=== PATIENT | female | born 1980 | race Caucasian/White ===

== ENCOUNTER 2017-08-02 05:26 | Day surgery (SDC) | payer MEDICAID ==
[~2017-08-02] VITALS: Ht 167.6 cm; Wt 115.2 kg
[~2017-08-02 05:26] MED LIST: MOBIC7.5 MG PO; NEURONTIN 300300 MG PO; NICODERM C1 PATCH .3 TRANSDERM; VALIUM10 MG PO
[2017-08-02 09:48] VITALS: BP 111/71; Ht 167.6 cm; Wt 115.2 kg
[2017-08-02] MEDS ORDERED: HYDROCODONE-APA1 TAB PO (13:36)
== END 2017-08-02 14:45 | disposition home or self-care (01) ==
LOC: D.OPS 05:26 → D.PAN 15:30 → D.OPS 17:45
DX: S83.242A Other tear of medial meniscus, current injury, left knee, initial encounter (principal); F17.200 Nicotine dependence, unspecified, uncomplicated; K21.9 Gastro-esophageal reflux disease without esophagitis; Z01.812 Encounter for preprocedural laboratory examination; M94.262 Chondromalacia, left knee

== ENCOUNTER → 2018-06-07 16:17 | Outpatient (CLI) | payer MEDICAID ==
[2017-08-02 09:48] VITALS: BMI 41.1
[~2018-06-07 16:17] MED LIST changes: +HYDROCODONE-APA1 TAB PO
== END | disposition home or self-care (01) ==
LOC: D.MRI 16:17
DX: M72.2 Plantar fascial fibromatosis (principal)

== ENCOUNTER 2019-03-15 13:03 | Emergency (ER) | payer MEDICAID ==
[~2019-03-15] VITALS: Ht 167.6 cm; Wt 95.3 kg
[2019-03-15 13:06] VITALS: Ht 167.6 cm; Wt 95.3 kg
[2019-03-15] MEDS ORDERED: ESTRACE 0.0142.5 GM VG (13:08)
[2019-03-15] MEDS ORDERED: TOPAMAX50 MG PO (13:10)
[2019-03-15] MEDS ORDERED: TYLENOL #4 W/CO1 TAB PO (13:10)
[2019-03-15 15:30] VITALS: BP 102/63
== END 2019-03-15 15:31 | disposition home or self-care (01) ==
LOC: D.ER 13:03
DX: M54.16 Radiculopathy, lumbar region (principal)

== ENCOUNTER 2019-05-19 09:00 | Day surgery (SDC) | payer MEDICAID ==
[2019-05-16 11:26] LABS: HEMATOCRIT 38.4 % (36.0-48.0); HEMOGLOBIN 13.1 g/dL (12-16); MCH 31.2 pg (26.0-34.0); MCHC 34.1 g/dL (31.0-37.0); MCV 91.4 fL (80.0-100.0); MEAN PLATELET VOLUME 10.7 fL (7.4-10.4); RBC 4.2 10x6/uL (4.00-5.40); RDW 12.9 % (11.5-14.5); WBC 9.7 10x3/uL (4.8-10.8)
[~2019-05-19] VITALS: Ht 167.6 cm; Wt 113.4 kg
[~2019-05-19 09:00] MED LIST changes: +ESTRACE 0.0142.5 GM VG; +NAPROXEN250 MG PO; +TOPAMAX50 MG PO; +TYLENOL #4 W/CO1 TAB PO
[2019-05-19 11:08] VITALS: BP 104/39; Ht 167.6 cm; Wt 113.4 kg
[2019-05-19] MEDS ORDERED: HYDROCODON-ACE1 EA10 PO (14:33)
--- NOTE | 2019-05-19 17:43 | NUR ---
1650 IV REMOVED INSTRUCTIONS AND RX GIVEN. NO CRUTCHES IN ROOM BUT STATED SHE HAS SOME AT HOME. WBAT TO LT LEG.
--- NOTE | 2019-05-21 15:43 | OP ---
PATIENT NAME: ZEE HUNTLEY MEDICAL RECORD: [id number] :80 LOCATION:[facility] ADMISSION DATE: SURGEON: LENY MELTON MD DATE OF OPERATION: 05/19/2019 PREOPERATIVE DIAGNOSIS: Patellofemoral syndrome of the left knee. POSTOPERATIVE DIAGNOSIS: Patellofemoral syndrome of the left knee. PROCEDURE: Arthroscopic lateral release, left knee. SURGEON: Leny Melton MD ANESTHESIA: General. INTRAOPERATIVE COMPLICATIONS: None. 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 OPERATIVE SUMMARY IN DETAIL: After obtaining the appropriate preoperative orthopedic surgery consent as well as anesthetic consultation, evaluation, and clearance, the patient was brought to the operating room and placed on the operating table in supine position. After general laryngeal mask airway was administered, tourniquet was placed about the proximal aspect of the left lower extremity. The left lower extremity was then prepped and draped in routine sterile fashion. At this point, the appropriate time-out was taken. The appropriate patient identifiers and side were agreed upon by all. Leg was elevated and exsanguinated. Tourniquet was inflated to 350 mmHg. Routine inferolateral portal was made followed by superomedial portal and inferolateral portal. Diagnostic arthroscopy showed the above findings. Attention was turned to the lateral retinaculum with the arthroscopic viewing site placed in the medial portal. Under direct visualization, the retinaculum was seen and the lateral retinaculum was released from just below the vastus lateralis to the inferolateral arthroscopic portal. Having completed this, the knee was insufflated with 30 cc of 0.25% Marcaine with epinephrine and 80 mg of Depo-Medrol. Arthroscopy portals were closed in routine interrupted fashion using 4-0 Prolene. Sterile dressings were applied. Tourniquet was deflated. The patient was awakened and taken to the recovery room in stable condition. All final needle and sponge counts were correct. TRANSINT:[id number] Voice Confirmation ID: [id number] DOCUMENT ID: [id number] LENY MELTON MD at 1546 CC: [id number] DICTATION DATE: 05/19/19 1436 BOAT ASSEMBLER: 05/19/19 1544 [facility] 05/19/19 [facility] [address] [id number]
== END 2019-05-19 17:00 | disposition home or self-care (01) ==
LOC: D.OPS 09:00 → D.PAN 13:45 → D.OPS 13:45
PROVIDERS: Anesthesiology; ATTEND Orthopaedic Surgery
DX: M22.2X2 Patellofemoral disorders, left knee (principal); Z01.812 Encounter for preprocedural laboratory examination